=== PATIENT | male | born 1975 | race Two or more races ===

== ENCOUNTER 2023-12-14 11:39 | Emergency (ER) | payer OTHER ==
[~2023-12-14] VITALS: Ht 182.9 cm; Wt 83.9 kg
[2023-12-14] MEDS ORDERED: TRAMADOL HCL 50 MG TABLET PO ONE (12:45)
[2023-12-14] MEDS ORDERED: ORPHENADRINE CITRATE 30 MG/ML AMPUL IM ONE (12:45)
[2023-12-14] MEDS ORDERED: ORPHENADRINE CITRATE 30 MG/ML AMPUL ONE (13:29)
[2023-12-14 13:31] LABS: HEMATOCRIT 43.1 % (39.0-48.0); MEAN CELL VOLUME 91.7 fL (80.0-100.00); MEAN CORPUSCULAR HGB CONC 34.9 g/dl (32.0-36.0); PLATELET COUNT 259 K/uL (150-450); RED CELL DISTRIBUTION WIDTH 14.1 % (11.5-14.5)
[2023-12-14 13:53] LABS: URINE APPEARANCE Clear; URINE BILIRRUBIN Negative (NEGATIVE); URINE BLOOD Negative; URINE COLOR Yellow; URINE GLUCOSE Negative (NEGATIVE); URINE KETONE Negative (NEGATIVE); URINE LEUKOCYTE Negative; URINE NITRATE Negative; URINE PROTEIN Negative (NEGATIVE)
[2023-12-14 13:56] LABS: CALCIUM 9.4 mg/dL (8.5-10.1); CREATININE SERUM 1.01 mg/dL (0.70-1.30); GFR 78.84; POTASSIUM 4.77 mEq/L (3.5-5.1)
[2023-12-14 13:56] LABS: URINE RBC 20.3 uL (0.0-20.8)
[2023-12-14 14:00] LABS: URINE BACTERIA 3.7 uL (0.0-1933); URINE WBC 1.5 uL (0.0-23.2)
[2023-12-14] MEDS ORDERED: NORFLEX100MG PO (16:00)
[2023-12-14] MEDS ORDERED: KETO10TA2 PO (16:00)
== END 2023-12-14 16:15 | disposition home or self-care (01) ==
LOC: ER 11:40
PROVIDERS: General Practice
DX: S29.8XXA Other specified injuries of thorax, initial encounter (principal); V00.831A Fall from motorized mobility scooter, initial encounter; Y93.I9 Activity, other involving external motion; Y92.413 State road as the place of occurrence of the external cause; R10.9 Unspecified abdominal pain